=== PATIENT | female | born 1960 | race Caucasian/White ===

== ENCOUNTER 2017-04-17 06:45 | Emergency (ER) | payer BC, OTHER ==
[~2017-04-17] VITALS: Ht 167.6 cm; Wt 82.4 kg
[~2017-04-17 06:45] MED LIST: ALLE24TA PO; HYCO5UDC PO
[2017-04-17 06:50] VITALS: BP 142/101; PULSE 87; RESP 18; TEMP 97; O2SAT 95
[2017-04-17] MEDS ORDERED: WELLTAB39 PO (07:00)
[2017-04-17] MEDS ORDERED: SODIUM CHLOR 0.9% 1000 ML INJ 1,000 ML IV SCH (07:07)
--- NOTE | 2017-04-17 07:09 | PD ---
HPI Chief Complaint: Flank/Kidney Pain Time Seen by Provider: 07:07 Travel History International Travel<30 days: No Contact w/Intl Traveler<30days: No Traveled to known affect area: No History of Present Illness HPI 56-year-old female with previous history of smoking, status post cholecystectomy , presents to the ER today because she is having 1 week history of left upper quadrant pain with radiation up to the left flank area which she currently states is a 10 out of 10. She has not noticed any exacerbating or alleviating factors. She has been nauseous but she denies any vomiting, diarrhea, shortness of breath, chest pains, or any other symptoms. She states this started on its own slowly. She denies any previous history of this kind of pain. Modifying Factors: None Associated Signs & Symptoms: Left upper quadrant and left flank pain Risk Factors: None PFSH Past Medical History Cancer: No Cardiovascular Problems: No Diabetes: No Diminished Hearing: No Glaucoma: No Hepatitis: No Hiatal Hernia: No Hypertension: No Respiratory: No Immunizations Current: No Thyroid Disease: No Influenza Vaccination: No ?: Not LMP: ALONDRA Menopausal: Yes : 2 Para: 2 Past Surgical History Cholecystectomy: Yes Genitourinary Surgery: Yes (BLADDER SUSPENSION) Gynecologic Surgery: Yes (POLYPS REMOVED FROM CERVIX, UTERINE ABLASION) Other Surgery: No Social History Alcohol Use: Yes (OCC/SOCAILLY) Tobacco Use: Yes Substance Use: No Allergies-Medications (Allergen,Severity, Reaction): Coded Allergies: No Known Allergies (Verified , 04/17/17) Reported Meds & Prescriptions Reported Meds & Active Scripts Active Reported Wellbutrin Xl 24 HR (Bupropion HCl) 300 Mg Tab 300 Mg PO DAILY Review of Systems Except as stated in HPI: all other systems reviewed are Neg Physical Exam Narrative GENERAL: Well-developed middle age white female patient currently in moderate distress. Awake and oriented 3. SKIN: Focused skin assessment warm/dry. HEAD: Atraumatic. Normocephalic. EYES: Pupils equal and round. No scleral icterus. No injection or drainage. ENT: No nasal bleeding or discharge. Mucous membranes pink and moist. NECK: Trachea midline. No JVD. CARDIOVASCULAR: Regular rate and rhythm. No murmur appreciated. RESPIRATORY: No accessory muscle use. Clear to auscultation. Breath sounds equal bilaterally. GASTROINTESTINAL: Abdomen soft, left upper quadrant tenderness without guarding or rebound, nondistended. Hepatic and splenic margins not palpable. MUSCULOSKELETAL: No obvious deformities. No clubbing. No cyanosis. No edema. NEUROLOGICAL: Awake and alert. No obvious cranial nerve deficits. Motor grossly within normal limits. Normal speech. PSYCHIATRIC: Appropriate mood and affect; insight and judgment normal. Data Data Last Documented VS Vital Signs Date Time Temp Pulse Resp B/P Pulse Ox O2 Delivery O2 Flow Rate FiO2 04/17/17 07:58 18 04/17/17 07:39 88 138/84 98 Room Air 04/17/17 06:50 97.0 Orders Urinalysis - C+S If Indicated (04/17/17 06:57) Complete Blood Count With Diff (04/17/17 07:07) Comprehensive Metabolic Panel (04/17/17 07:07) Lipase (04/17/17 07:07) Ct Abd/Pel W Iv Contrast(Rout) (04/17/17 07:07) Iv Access Insert/Monitor (04/17/17 07:07) Ecg Monitoring (04/17/17 07:07) Oximetry (04/17/17 07:07) Ondansetron Inj (Zofran Inj) (04/17/17 07:15) Sodium Chlor 0.9% 1000 Ml Inj (Ns 1000 M (04/17/17 07:07) Sodium Chloride 0.9% Flush (Ns Flush) (04/17/17 07:15) Electrocardiogram (04/17/17 07:07) Hydromorphone Pf Inj (Dilaudid Pf Inj) (04/17/17 07:15) Iohexol 350 Inj (Omnipaque 350 Inj) (04/17/17 07:59) Al-Mag Hy-Si 40-40-4 Mg/Ml Liq (Mag-Al P (04/17/17 08:30) Lidocaine 2% Viscous (Xylocaine 2% Visco (04/17/17 08:30) Labs Laboratory Tests Test 04/17/17 04/17/17 07:00 07:20 Urine Collection Type CLEAN CATCH Urine Color YELLOW Urine Turbidity CLEAR Urine pH 6.0 Urine Specific [facility] 1.020 Urine Protein NEG mg/dL Urine Glucose (UA) NEG mg/dL Urine Ketones NEG mg/dL Urine Occult Blood SMALL Urine Nitrite NEG Urine Bilirubin NEG Urine Leukocyte Esterase NEG Urine RBC 0-3 /hpf Urine WBC 3-5 /hpf Urine Squamous Epithelial 6-8 /hpf Cells Urine Amorphous Sediment FEW Urine Bacteria OCC /hpf Urine Fine Granular Casts 0-2 /lpf Microscopic Urinalysis Comment CULT NOT INDICATED White Blood Count 6.0 TH/MM3 Red Blood Count 4.88 MIL/MM3 Hemoglobin 14.4 GM/DL Hematocrit 42.1 % Mean Corpuscular Volume 86.2 FL Mean Corpuscular Hemoglobin 29.5 PG Mean Corpuscular Hemoglobin 34.2 % Concent Red Cell Distribution Width 12.5 % Platelet Count 351 TH/MM3 Mean Platelet Volume 7.6 FL Neutrophils (%) (Auto) 51.1 % Lymphocytes (%) (Auto) 34.8 % Monocytes (%) (Auto) 6.1 % Eosinophils (%) (Auto) 4.3 % Basophils (%) (Auto) 3.7 % Neutrophils # (Auto) 3.0 TH/MM3 Lymphocytes # (Auto) 2.1 TH/MM3 Monocytes # (Auto) 0.4 TH/MM3 Eosinophils # (Auto) 0.3 TH/MM3 Basophils # (Auto) 0.2 TH/MM3 CBC Comment DIFF FINAL Differential Comment Sodium Level 144 MEQ/L Potassium Level 3.9 MEQ/L Chloride Level 110 MEQ/L Carbon Dioxide Level 27.7 MEQ/L Anion Gap 6 MEQ/L Blood Urea Nitrogen 11 MG/DL Creatinine 0.68 MG/DL Estimat Glomerular Filtration 90 ML/MIN Rate Random Glucose 98 MG/DL Calcium Level 9.2 MG/DL Total Bilirubin 0.3 MG/DL Aspartate Amino Transf 18 U/L (AST/SGOT) Alanine Aminotransferase 28 U/L (ALT/SGPT) Alkaline Phosphatase 99 U/L Total Protein 7.0 GM/DL Albumin 3.6 GM/DL Lipase 127 U/L [facility] Medical Decision Making Medical Screen Exam Complete: Yes Emergency Medical Condition: Yes Medical Record Reviewed: Yes Interpretation(s) Laboratory Tests Test 04/17/17 04/17/17 07:00 07:20 Urine Occult Blood SMALL (NEG) Urine Squamous Epithelial 6-8 /hpf (0-5) Cells Urine Bacteria OCC /hpf (NONE) Eosinophils (%) (Auto) 4.3 % (0.0-4.0) Basophils (%) (Auto) 3.7 % (0.0-2.0) Chloride Level 110 MEQ/L (98-107) Last 24 hours Impressions Abdomen/Pelvis CT 04/17/17 0707 Signed Impressions: Service Date/Time: Monday, April 17, 2017 07:47 - CONCLUSION: No acute disease. Maynor James MD Differential Diagnosis Left upper quadrant and flank painsgastritis versus gastroenteritis versus pancreatitis versus renal colic versus other acute intra-abdominal processes versus pneumonia Narrative Course Lab work and CAT scan did not show any signs of acute processes. She does not know any exacerbating or alleviating factors. Patient had been given a dose of Dilaudid and Zofran with IV fluids initially with some mild relief. At this point, I do not see any signs of other acute processes. My plan would be to try some GI cocktail and H2 blockers considering location of patient's pain and have her follow-up with primary care physician and GI doctor. Return for any worsening in symptoms as necessary. The plan has discussed with her and she states understanding. Diagnosis Primary Impression: Abdominal pain Med/Other Pt SpecificInfo: Prescription(s) given Scripts Ondansetron Odt (Zofran Odt)4 Mg Tab4 Mg SL Q6HR PRN (Nausea/Vomiting) #7 TAB Ref 0 Prov:Alisa Zacarias MD 04/17/17 Ranitidine (Zantac)150 Mg [id number] Mg PO BID #20 TAB Ref 0 Prov:Alisa Zacarias MD 04/17/17 Disposition: 01 DISCHARGE HOME Condition: Stable Alisa Zacarias MD Apr 17, 2017 07:09
[2017-04-17] MEDS ORDERED: ONDANSETRON HCL 4 MG/2 ML VIAL IVP ONE (07:15)
[2017-04-17] MEDS ORDERED: SODIUM CHLORIDE 0.9% FLUSH 10 ML FLUSH IV FLUSH PRN (07:15)
[2017-04-17] MEDS ORDERED: HYDROmorphone HCL PF 1 MG/ML VIAL IVS ONE (07:15)
[2017-04-17 07:21] VITALS: BP 158/74; PULSE 88; RESP 18; O2SAT 96
[2017-04-17 07:31] LABS: BASOPHIL # 0.2 TH/MM3 (0-0.2); BASOPHIL % 3.7 % (0.0-2.0); EOSINOPHIL # 0.3 TH/MM3 (0-0.4); EOSINOPHIL % 4.3 % (0.0-4.0); HEMATOCRIT 42.1 % (35.0-46.0); HEMO FLAGS DIFF FINAL; LYMPH % 34.8 % (9.0-44.0); LYMPHOCYTE # 2.1 TH/MM3 (1.0-4.8); MEAN CELL VOLUME 86.2 FL (80.0-100.0); MEAN CORPUSCULAR HEMOGLOBIN 29.5 PG (27.0-34.0); MEAN CORPUSCULAR HGB CONC 34.2 % (32.0-36.0); MONO % 6.1 % (0.0-8.0); NEUT % 51.1 % (16.0-70.0); PLATELET COUNT 351 TH/MM3 (150-450); RED BLOOD COUNT 4.88 MIL/MM3 (4.00-5.30); RED CELL DISTRIBUTION WIDTH 12.5 % (11.6-17.2)
[2017-04-17 07:32] LABS: BLOOD, URINE SMALL (NEG); GLUCOSE,URINE NEG (NEG); KETONE, URINE NEG (NEG); NITRITE,URINE NEG (NEG)
[2017-04-17 07:33] LABS: METHOD OF COLLECTION CLEAN CATCH; URINE COLOR YELLOW (YELLW/STRAW)
[2017-04-17 07:37] LABS: BACTERIA, URINE OCC /hpf; COMMENT (UR) CULT NOT INDICATED; CULTURE IF INDICATED CULT NOT INDICATED; RBC, URINE 0-3 /hpf (0-3)
[2017-04-17 07:39] VITALS: BP 138/84; PULSE 88; RESP 18; O2SAT 98
[2017-04-17 07:39] LABS: CHLORIDE 110 MEQ/L (98-107); POTASSIUM 3.9 MEQ/L (3.5-5.1); SODIUM (NA) 144 MEQ/L (136-145)
[2017-04-17 07:42] LABS: ANION GAP 6 MEQ/L (5-15); BICARBONATE 27.7 MEQ/L (21.0-32.0)
[2017-04-17 07:43] LABS: BLOOD UREA NITROGEN 11 MG/DL (7-18)
[2017-04-17 07:45] LABS: AST (GOT) 18 U/L (15-37); GLOMERULAR FILTRATION RATE 90 ML/MIN (>89)
[2017-04-17 07:47] LABS: TOTAL BILIRUBIN ADULT 0.3 MG/DL (0.2-1.0)
[2017-04-17 07:48] LABS: ALKALINE PHOSPHATASE 99 U/L (45-117)
[2017-04-17 07:50] LABS: ALT (GPT) 28 U/L (10-53)
[2017-04-17] MEDS ORDERED: IOHEXOL 350 MG/ML 10 ML VIAL (for RAD DIAG) IV ONE (07:59)
--- NOTE | 2017-04-17 08:12 | RADRPT ---
EXAM DATE/TIME: 04/17/2017 07:47 [facility] COMPARISON: No previous studies available for comparison. INDICATIONS : Left flank pain. IV CONTRAST: 95 cc Omnipaque 350 (iohexol) IV ORAL CONTRAST: No oral contrast ingested. RADIATION DOSE: 19.48 CTDIvol (mGy) MEDICAL HISTORY : None SURGICAL HISTORY : Cholecystectomy. Bladder suspension ENCOUNTER: Initial ACUITY: 1 week PAIN SCALE: 4/10 LOCATION: Left flank TECHNIQUE: Volumetric scanning of the abdomen and pelvis was performed. Using automated exposure control and ad justment of the mA and/or kV according to patient size, radiation dose was kept as low as reasonably achievable to obtain optimal diagnostic quality images. DICOM format image data is available electro nically for review and comparison. FINDINGS: LOWER LUNGS: The visualized lower lungs are clear. LIVER: Homogeneous density without lesion. There is no dilation of the biliary tree. No calcified gallston es. SPLEEN: Normal size without lesion. PANCREAS: Within normal limits. KIDNEYS: Normal in size and shape. There is no mass, stone or hydronephrosis. ADRENAL GLANDS: Within normal limits. VASCULAR: There is no aortic aneurysm. BOWEL/MESENTERY: The stomach, small bowel, and colon demonstrate no acute abnormality. There is no free intraperitone al air or fluid. ABDOMINAL WALL: Within normal limits. RETROPERITONEUM: There is no lymphadenopathy. BLADDER: No wall thickening or mass. REPRODUCTIVE: Within normal limits. INGUINAL: There is no lymphadenopathy or hernia. MUSCULOSKELETAL: Within normal limits for patient age. CONCLUSION: No acute disease. Maynor James MD on April 17, 2017 at 8:04 Board Certified Radiologist. This report was verified electronically.
[2017-04-17] MEDS ORDERED: ZOFR4TAB3 SL (08:28)
[2017-04-17] MEDS ORDERED: ZANT150T2 PO (08:28)
[2017-04-17] MEDS ORDERED: LIDOCAINE VISCOUS 2% SOLN 15 ML UDC PO ONE (08:30)
[2017-04-17] MEDS ORDERED: ALUMINUM/MAGNESIUM/SIMETH 30 ML CUP PO ONE (08:30)
[2017-04-17 09:16] VITALS: BP 137/79; PULSE 73; RESP 18; O2SAT 98
--- NOTE | 2017-04-17 09:42 | RADRPT ---
EXAM DATE/TIME: 04/17/2017 09:31 [facility] COMPARISON: CHEST SINGLE AP, April 25, 2014, 12:42. INDICATIONS : Left lower chest, upper abdomen pain, vomiting, left flank pain MEDICAL HISTORY : None. SURGICAL HISTORY : None. ENCOUNTER: Initial ACUITY: 1 week PAIN SCORE: 6/10 LOCATION: Left lower chest FINDINGS: A single view of the chest demonstrates the lungs to be symmetrically aerated without evidence of mas s, infiltrate or effusion. The cardiomediastinal contours are unremarkable. Osseous structures are intact. CONCLUSION: No acute disease. No significant change has occurred. Maynor James MD on April 17, 2017 at 9:40 Board Certified Radiologist. This report was verified electronically.
--- NOTE | 2017-04-18 19:40 | EKG ---
Date Performed: 04/17/2017 Time Performed: 07:11:59 PTAGE: 56 years EKG: Sinus rhythm NONSPECIFIC T-WAVE ABNORMALITY BORDERLINE ECG PREVIOUS TRACING : 01/08/2015 02.05 Since previous tracing, no significant change noted DOCTOR: Issa Kennedy Interpretating Date/Time 04/18/2017 19:39:31
== END 2017-04-17 09:58 | disposition home or self-care (01) ==
LOC: PHED 06:45
DX: R10.12 Left upper quadrant pain (principal); R11.0 Nausea; R94.31 Abnormal electrocardiogram [ECG] [EKG]; Z72.0 Tobacco use
CPT/HCPCS: 71010; 74177; 80053; 81001; 83690; 85025; 93005; 96361; 96374; 96375; 99285; J1170; J2405; J7030; Q9967